=== PATIENT | male | born 1985 ===

== ENCOUNTER 2018-07-28 01:32 | Emergency (ER) | payer OTHER ==
[2018-07-28] MEDS ORDERED: traMADol 50 MG Tab PO ONE (02:00)
--- NOTE | 2018-07-28 02:06 | EDM.PDOC ---
ED HPI GENERAL MEDICAL PROBLEM - General Chief Complaint: General Stated Complaint: PAINFUL THUMB ON RIGHT HAND Time Seen by Provider: 07/28/18 01:43 Source of Information: Reports: Patient History Limitations: Reports: No Limitations - History of Present Illness INITIAL COMMENTS - FREE TEXT/NARRATIVE: This is a 33-year-old male. Apparently went to the walk-in clinic today was diagnosed with a paronychia of his right thumb and placed on Augmentin. He comes to the ER because he says his entire thumb is hurting and is running down his thumb and into the thenar prominence and he feels like it is swollen. There is been no drainage from the thumb however. He is requesting something for pain because he can't tolerate the pain and discomfort are making him throw up. He denies any fever or chills he denies any other acute symptoms. She denies any trauma to the right thumb. Right Hand Pain Score (Numeric/FACES): 9 - Related Data Allergies Allergy/AdvReac Type Severity Reaction Status Date / Time No Known Allergies Allergy Verified 07/28/18 01:41 Home Meds: Home Meds Amoxicillin/Potassium Clav [Amox Tr-K Clv 875-125 mg Tab] 1 each PO BID [History] atorvaSTATin [Lipitor] 10 mg PO BEDTIME 07/28/18 [History] traMADol [Ultram] 50 mg PO Q6H PRN #12 tab 07/28/18 [Rx] Past Medical History - Past Health History Medical/Surgical History: Denies Medical/Surgical History Social & Family History - Tobacco Use Smoking Status *Q: Never Smoker - Caffeine Use Caffeine Use: Reports: None - Recreational Drug Use Recreational Drug Use: No ED ROS GENERAL - Review of Systems Review Of Systems: See Below Constitutional: Denies: Fever, Chills HEENT: Reports: No Symptoms Respiratory: Reports: No Symptoms Cardiovascular: Reports: No Symptoms Endocrine: Reports: No Symptoms GI/Abdominal: Reports: No Symptoms : Reports: No Symptoms Musculoskeletal: Reports: Other (As per history of present illness) Skin: Reports: Other (As per history of present illness) Neurological: Reports: No Symptoms Psychiatric: Reports: No Symptoms Hematologic/Lymphatic: Reports: No Symptoms ED EXAM, GENERAL - Physical Exam Exam: See Below Exam Limited By: No Limitations General Appearance: Alert, WD/WN, No Apparent Distress Eye Exam: Bilateral Eye: Normal Inspection Ears: Normal External Exam Nose: Normal Inspection Throat/Mouth: Normal Inspection, Normal Lips, Normal Voice, No Airway Compromise Head: Normocephalic Neck: Supple Respiratory/Chest: No Respiratory Distress Back Exam: Full Range of Motion Extremities: Other (His right thumb suggest may be a beginning paronychia on the ulnar side of the nail but there is no drainage, the nail matrix itself does not appear to be particular swollen, he does have some tenderness in the nail itself and maybe a little bit of redness in that area but there is no subungual hematoma, looking at the thumb itself compared to the left thumb there is no significant tenderness in the thenar prominence on the right is only slightly larger than the left but then he is right handed, there is no other right hand abnormality noted) Neurological: Alert, Oriented Psychiatric: Normal Affect, Anxious Skin Exam: Warm, Dry Course - Vital Signs Last Recorded V/S: Last Vital Signs Temp 97.3 F 07/28/18 01:38 Pulse 92 07/28/18 01:38 Resp 20 07/28/18 01:38 BP 181/106 H 07/28/18 01:38 Pulse Ox 99 07/28/18 01:38 - Orders/Labs/Meds Orders: Active Orders 24 hr Category Date Time Status traMADol [Ultram] Med 07/28/18 02:00 Once 50 mg PO ONETIME ONE Departure - Departure Time of Disposition: 02:04 Disposition: Home, Self-Care 01 Condition: Good Clinical Impression: Paronychia of right thumb - Discharge Information *PRESCRIPTION DRUG MONITORING PROGRAM REVIEWED*: Not Applicable *COPY OF PRESCRIPTION DRUG MONITORING REPORT IN PATIENT JERMAIN: Not Applicable Prescriptions: traMADol [Ultram] 50 mg PO Q6H PRN #12 tab PRN Reason: Pain Referrals: Andrez Swift PA-C [Primary Care Provider] - Additional Instructions: Continue with the antibiotics faithfully, you need to follow-up with your family doctor this week for recheck and if it looks like the infection is getting worse the tissue might need to be opened and drained, take the pain medication as needed, you may use ibuprofen or Aleve to help with the soreness as well, return to the ER as needed - My Orders Last 24 Hours: My Active Orders 07/28/18 02:00 traMADol [Ultram] 50 mg PO ONETIME ONE - Assessment/Plan Last 24 Hours: My Active Orders 07/28/18 02:00 traMADol [Ultram] 50 mg PO ONETIME ONE
== END 2018-07-28 02:23 | disposition home or self-care (01) ==
LOC: JD.ED 01:32
DX: L03.011 Cellulitis of right finger (principal)
CPT/HCPCS: 99283; A9270